=== PATIENT | female | born 1945 | race Caucasian/White ===

== ENCOUNTER 2019-03-27 11:18 | Emergency (ER) | payer MEDICARE, BC ==
[2019-03-27 11:46] LABS: #Basophils 0.1 thou/uL (0.0-0.2); #Eosinphils 0.2 thou/uL (0.0-0.7); #Lymphocytes 2.4 thou/uL (1.20-3.40); #Monocytes 0.7 thou/uL (0.11-0.59); #Neutrophils 5.1 thou/uL (1.40-6.50); %Basophils 0.9 % (0.0-1.0); %Eosinophils 1.9 % (0.0-10.0); %Lymphocytes 28.4 % (21.0-51.0); %Monocytes 7.8 % (0.0-10.0); %Neutrophils 61.1 % (42.0-75.0); Hemoglobin 12.8 g/dL (12.0-16.0); Mean Corpuscular HGB CONC 31.1 g/dL (32.0-36.0); Mean Corpuscular Hemoglobin 29.3 pg (27.0-31.0); Mean Corpuscular Volume 94.3 fL (78.0-98.0); Mean Platelet Volume 7.3 fL (7.4-10.4); Platelet Count 248 thou/uL (130-400); RBC Distribution Width 13.6 % (11.5-14.5); Red Blood Cell (RBC) Count 4.37 mill/uL (4.20-5.40); White Blood Cell (WBC) Count 8.3 thou/uL (4.8-10.8)
[2019-03-27 12:03] LABS: ALT (SGPT) 9 U/L (8-55); AST (SGOT) 9 U/L (5-34); Albumin 3.9 g/dL (3.4-4.8); Alkaline Phosphatase 93 U/L (40-150); Anion Gap 13 mmol/L (10-20); BUN (Urea Nitrogen) 25 mg/dL (9.8-20.1); Bilirubin, Total 0.4 mg/dL (0.2-1.2); Calc. Creatinine Clearance 0 mL/min (70-130); Carbon Dioxide 30 mmol/L (23-31); Chloride 101 mmol/L (98-107); Estimated GFR-MDRD 32; Globulin 3.3 g/dL (2.4-3.5); Glucose 139 mg/dL (83-110); Potassium 4.3 mmol/L (3.5-5.1); Protein, Total 7.2 g/dL (6.0-8.3); Sodium 140 mmol/L (136-145)
[2019-03-27 12:04] LABS: Alcohol Less than 10 mg/dL (Less than 10); Salicylate Less than 8.0 mg/dL (15.0-30.0)
[2019-03-27 15:11] LABS: ALT (SGPT) 10 U/L (8-55); AST (SGOT) 12 U/L (5-34); Albumin 3.7 g/dL (3.4-4.8); Alcohol Less than 10 mg/dL (Less than 10); Alkaline Phosphatase 86 U/L (40-150); Anion Gap 12 mmol/L (10-20); BUN (Urea Nitrogen) 25 mg/dL (9.8-20.1); Bilirubin, Total 0.3 mg/dL (0.2-1.2); Calc. Creatinine Clearance 0 mL/min (70-130); Calcium 9.6 mg/dL (7.8-10.44); Carbon Dioxide 30 mmol/L (23-31); Chloride 100 mmol/L (98-107); Estimated GFR-MDRD 32; Globulin 3.1 g/dL (2.4-3.5); Glucose 120 mg/dL (83-110); Potassium 4.5 mmol/L (3.5-5.1); Protein, Total 6.8 g/dL (6.0-8.3); Salicylate Less than 8.0 mg/dL (15.0-30.0); Sodium 137 mmol/L (136-145)
[2019-03-27 15:12] LABS: INR-International Normal Ratio 1.2; PTT 31.7 SEC (22.9-36.1); Prothrombin Time 14.8 SEC (12.0-14.7)
[2019-03-27 15:35] LABS: Base Excess-Venous 3.1 mmol/L (-2.0 to 3.0); Bicarbonate (HCO3v) 28.9 mmol/L (22.0-28.0); CO2 Tension (PvCO2) 47.5 mmHg (40.0-50.0); Calcium, Ionized 1.15 mmol/L (See Comments:); Chloride 102 mmol/L (98-107); Hemoglobin - Calc 13.4 g/dL (12.0-16.0); O2 Tension (PvO2) 31.3 mmHg (35.0-45.0); Potassium 4.4 mmol/L (3.5-5.1); Sodium 137 mmol/L (138-145); T. Carbon Dioxide 30.3 mmol/L (22.0-28.0); pH (Venous) 7.392 (7.320-7.430); vO2 Saturation-calc 58.8 % (60.0-85.0)
== END 2019-03-27 15:28 | disposition home or self-care (01) ==
LOC: BURERS 11:18
DX: T39.1X1A Poisoning by 4-Aminophenol derivatives, accidental (unintentional), initial encounter (principal); J45.909 Unspecified asthma, uncomplicated; I11.0 Hypertensive heart disease with heart failure; I50.9 Heart failure, unspecified; F32.9 Major depressive disorder, single episode, unspecified; Z79.899 Other long term (current) drug therapy; Z79.4 Long term (current) use of insulin
CPT/HCPCS: 80053; 80307; 82330; 82803; 83605; 85025; 85610; 85730; 99284

== ENCOUNTER 2019-07-02 14:03 | Emergency (ER) | payer MEDICARE, BC | END 2019-07-02 16:44 | disposition home or self-care (01) | LOC: BURERS 14:03 | DX: R04.0 Epistaxis (principal); I11.0 Hypertensive heart disease with heart failure; J45.909 Unspecified asthma, uncomplicated; I50.9 Heart failure, unspecified; E11.9 Type 2 diabetes mellitus without complications; F32.9 Major depressive disorder, single episode, unspecified; Z79.01 Long term (current) use of anticoagulants; Z79.51 Long term (current) use of inhaled steroids; Z79.899 Other long term (current) drug therapy; Z79.4 Long term (current) use of insulin | CPT/HCPCS: 99283 ==

== ENCOUNTER 2019-07-03 05:57 | Emergency (ER) | payer MEDICARE, BC | END 2019-07-03 06:40 | disposition home or self-care (01) | LOC: BURERS 05:57 | DX: R04.0 Epistaxis (principal); I11.0 Hypertensive heart disease with heart failure; I50.9 Heart failure, unspecified; E11.9 Type 2 diabetes mellitus without complications; F32.9 Major depressive disorder, single episode, unspecified; J45.909 Unspecified asthma, uncomplicated; Z79.01 Long term (current) use of anticoagulants; Z79.51 Long term (current) use of inhaled steroids; Z79.899 Other long term (current) drug therapy; Z79.4 Long term (current) use of insulin | CPT/HCPCS: 30903 ==

== ENCOUNTER 2020-10-12 20:46 | Emergency (ER) | payer MEDICARE, BC ==
[2020-10-12] MEDS ORDERED: Pantoprazole 40 MG VIAL ONE (21:39)
[2020-10-12] MEDS ORDERED: Morphine 4 MG/ML VIAL ONE (21:39)
[2020-10-12 21:45] LABS: #Basophils 0.1 thou/uL (0.0-0.2); #Eosinphils 0.1 thou/uL (0.0-0.7); #Lymphocytes 1.3 thou/uL (1.20-3.40); #Monocytes 1.1 thou/uL (0.11-0.59); #Neutrophils 12.2 thou/uL (1.40-6.50); %Basophils 0.9 % (0.0-1.0); %Eosinophils 0.8 % (0.0-10.0); %Lymphocytes 8.7 % (21.0-51.0); %Monocytes 7.5 % (0.0-10.0); %Neutrophils 82.2 % (42.0-75.0); Hemoglobin 12.1 g/dL (12.0-16.0); Mean Corpuscular HGB CONC 31.3 g/dL (32.0-36.0); Mean Corpuscular Hemoglobin 27.4 pg (27.0-31.0); Mean Corpuscular Volume 87.6 fL (78.0-98.0); Platelet Count 205 thou/uL (130-400); RBC Distribution Width 15.9 % (11.5-14.5); White Blood Cell (WBC) Count 14.8 thou/uL (4.8-10.8)
[2020-10-12 21:59] LABS: ALT (SGPT) 14 U/L (8-55); AST (SGOT) 8 U/L (5-34); Albumin 3.6 g/dL (3.4-4.8); Alkaline Phosphatase 110 U/L (40-110); Anion Gap 16 mmol/L (10-20); BUN (Urea Nitrogen) 22 mg/dL (9.8-20.1); Bilirubin, Total 0.4 mg/dL (0.2-1.2); Calc. Creatinine Clearance 0 mL/min (70-130); Calcium 9.1 mg/dL (7.8-10.44); Carbon Dioxide 25 mmol/L (23-31); Chloride 101 mmol/L (98-107); Estimated GFR-MDRD 32; Globulin 3.5 g/dL (2.4-3.5); Glucose 183 mg/dL (83-110); Lipase 33 U/L (8-78); Potassium 4.2 mmol/L (3.5-5.1); Protein, Total 7.1 g/dL (6.0-8.3); Sodium 138 mmol/L (136-145)
[2020-10-12 22:58] LABS: Bilirubin Negative (Negative); Blood, Urine Negative (Negative); Clarity Clear (Clear); Glucose, Urine (Dipstick) Negative (Negative); Ketone, Urine Negative (Negative); Leukocyte Trace (Negative); Nitrite Negative (Negative); Protein, Urine (Dipstick) 30 mg/dL (Neg-Trace); Urobilinogen 0.2 mg/dL (Less than 2)
[2020-10-12 23:00] LABS: Specific Gravity, Urine 1.034 (1.002-1.036)
[2020-10-12 23:03] LABS: Bacteria/HPF 1+ HPF (None Seen); RBC/HPF 0-3 HPF (0-3); Squamous Epithelial 0-3 HPF (0-3)
--- NOTE | 2020-10-13 08:13 | CT ---
PRELIMINARY REPORT/[facility]/EMERGENCY AFTER HOURS PROCEDURE: Addendum: There are 2 cystic structure in the calf and first the adjacent to the gallbladder with the larger on e measuring about 6.2 cm, probable represent choledochocyst. This may be further evaluated MRCP if c linically indicated. Addendum electronically signed by Lashell Parnell MD on October 12, 2020 10:43:28 PM [employer] EXAM: CT Abdomen and Pelvis Without Intravenous Contrast CLINICAL HISTORY: Patient with bilateral upper abdominal pain and bloating starting 3 days ago. She thought maybe due t o constipation (no BM for 6 days now) and gas. Pain migrated to RUQ and worse this morning. Worse wit h any deep breaths or laughing, some with moving around. Still no BM so took a laxative this AM witho ut result. Done w/o due to labs GFR 32 TECHNIQUE: Axial computed tomography images of the abdomen and pelvis without intravenous contrast. CONTRAST: None. COMPARISON: None provided. FINDINGS: LUNG BASES: No basilar airspace consolidation or pleural effusion. LIVER: There are 2 cystic structure adjacent to the gallbladder with the larger one measuring about 6.2 cm m ay represent a hepatic cyst. GALLBLADDER AND BILE DUCTS: The gallbladder is distended with 2 gallstones in the gallbladder neck region, cholecystitis cannot b e excluded. PANCREAS: Unremarkable. SPLEEN: Unremarkable. ADRENAL GLANDS: Unremarkable. KIDNEYS, URETERS, AND BLADDER: Both kidneys are small and atrophic. STOMACH AND BOWEL: No obstruction. No wall thickening. No CT evidence of colitis or acute diverticulitis. APPENDIX: No CT evidence for appendicitis. PERITONEUM: No free fluid. No free air. LYMPH NODES: No lymphadenopathy. REPRODUCTIVE: Unremarkable as visualized. VASCULATURE: No aortic aneurysm. ABDOMINAL WALL AND SOFT TISSUES: Unremarkable. BONES: No fracture or suspicious osseous abnormality. IMPRESSION: 1. The gallbladder is distended with 2 gallstones in the gallbladder neck region, cholecystitis canno t be excluded. 2. There are 2 cystic structure adjacent to the gallbladder with the larger one measuring about 6.2 c m may represent a hepatic cyst. 3. Both kidneys are small and atrophic. ELECTRONICALLY SIGNED BY: Lashell Parnell MD Oct 12, 2020 10:42:01 PM [employer] This report is intended for review by the ordering physician only, in accordance of law. If you recei ve this report in error, please call [facility] at [phone]. FINAL REPORT CT ABDOMEN AND PELVIS WITHOUT CONTRAST: DATE: 10/12/2020. FINDINGS: A NONCONTRAST ct WAS DONE FOR EVALUATION OF UPPER ABDOMINAL PAIN WHICH HAS MIGRATED TO THE RIGHT UPPE R QUADRANT. Comparison is made with the 2004 CT. The lung bases are clear. The major finding on this study is a markedly distended gallbladder measur ing at least 11 cm in length. Its wall is slightly thickened. At least 2 large gallstones are prese nt in it. The gallstones were present before, but the gallbladder was not distended. There are 2 la rge cystic structures adjacent to it that are seen on the prior CT. The larger is in the medial part of the right lobe of the liver measuring about 6.5 cm in size. It was 3.8 cm in 2004. A smaller cy stic area near it measures about 3 cm in size which is also slightly larger than before. The appeara nce is most suggestive of hepatic cysts, though other entities, such as one of these being a choledoc larissa cyst is theoretically possible. There is a small 1 cm cyst in the dome of the liver in the vicin ity of the left lobe and probably at least one more in the anterior right lobe. The overall hepatic size seems comparable to before. The spleen, pancreas, adrenal glands, and abdominal aorta, showed no acute findings. The kidneys are atrophic but show no mass. The aorta is calcified. Its maximal diameter in the mid aortic region i s 2.9 cm. There is no distention of bowel to suggest obstruction. A moderate amount of fecal material is prese nt in the colon. There is no inflammatory change around bowel. CT of the pelvis shows no free fluid, inflammatory change, or mass. Extensive degenerative changes a re present in the lumbar spine with central canal stenosis at several of the lower lumbar levels. IMPRESSION: 1. Markedly distended gallbladder with gallstones and wall thickening. Cholecystitis is suspected. An ultrasound would be helpful. There is no sign of intrahepatic ductal dilation. 2. Two large cystic areas adjacent to the gallbladder which were present in 2004 but are larger. I still feel the odds are highest that these are hepatic cysts. A few other tinier hepatic cysts are p robable in the liver. Again, ultrasound could be helpful. 3. Mild constipation. Report in agreement with preliminary reading by [facility]. POS: HOME
== END 2020-10-12 23:31 | disposition short-term general hospital (02) ==
LOC: BURERS 20:46
DX: K81.9 Cholecystitis, unspecified (principal); I11.0 Hypertensive heart disease with heart failure; I50.9 Heart failure, unspecified; E11.9 Type 2 diabetes mellitus without complications; E03.9 Hypothyroidism, unspecified; J45.909 Unspecified asthma, uncomplicated; F32.9 Major depressive disorder, single episode, unspecified
CPT/HCPCS: 74176; 80053; 81003; 81015; 83605; 83690; 84484; 85025; 87086; 93005; 96374; 96375; C9113; J2270

== ENCOUNTER 2020-12-18 14:43 | Emergency (ER) | payer MEDICARE, BC | END 2020-12-18 15:21 | disposition home or self-care (01) | LOC: BURERS 14:43 | DX: S61.511A Laceration without foreign body of right wrist, initial encounter (principal); R04.0 Epistaxis; E11.9 Type 2 diabetes mellitus without complications; E03.9 Hypothyroidism, unspecified; J44.9 Chronic obstructive pulmonary disease, unspecified; J45.909 Unspecified asthma, uncomplicated; I11.0 Hypertensive heart disease with heart failure; I50.9 Heart failure, unspecified; W18.30XA Fall on same level, unspecified, initial encounter | CPT/HCPCS: 30903 ==

== ENCOUNTER 2020-12-21 09:51 | Emergency (ER) | payer MEDICARE, BC | END 2020-12-21 10:09 | disposition home or self-care (01) | LOC: BURERS 09:51 | DX: Z48.01 Encounter for change or removal of surgical wound dressing (principal); I50.9 Heart failure, unspecified; I11.0 Hypertensive heart disease with heart failure; E11.9 Type 2 diabetes mellitus without complications; E03.9 Hypothyroidism, unspecified; J44.9 Chronic obstructive pulmonary disease, unspecified | CPT/HCPCS: 99282 ==

== ENCOUNTER 2021-04-20 09:44 | Emergency (ER) | payer MEDICARE, BC ==
[2021-04-20] MEDS ORDERED: Ketorolac Tromethamine 30 MG/ML VIAL ONE (10:14)
== END 2021-04-20 10:59 | disposition home or self-care (01) ==
LOC: BURERS 09:44
DX: S33.8XXA Sprain of other parts of lumbar spine and pelvis, initial encounter (principal); M54.17 Radiculopathy, lumbosacral region; E11.9 Type 2 diabetes mellitus without complications; E03.9 Hypothyroidism, unspecified; I10 Essential (primary) hypertension; J44.9 Chronic obstructive pulmonary disease, unspecified; Z79.899 Other long term (current) drug therapy; Z79.84 Long term (current) use of oral hypoglycemic drugs; Z79.01 Long term (current) use of anticoagulants; W19.XXXA Unspecified fall, initial encounter
CPT/HCPCS: 72100; 72220; 96372; J1885

== ENCOUNTER 2023-03-01 19:20 | Inpatient (IN) | payer MEDICARE, BC ==
[2023-03-01] MEDS ORDERED: traMADol HCl 50 MG TAB PO PRN (20:42)
[2023-03-01] MEDS ORDERED: Gabapentin 300 MG CAP PO PRN (20:44)
[2023-03-01] MEDS ORDERED: Cyclobenzaprine 10 MG TAB PO PRN (20:50)
[2023-03-01 20:52] VITALS: BMI 44.1
[2023-03-01] MEDS ORDERED: Bisacodyl 10 MG SUPP PR PRN (21:00)
[2023-03-01] MEDS ORDERED: HYDROcodone/Acetaminophen 5/325 mg Tablet PO PRN ×2 (21:00)
[2023-03-01] MEDS ORDERED: Loperamide HCl 2 MG CAP PO PRN ×2 (21:00)
[2023-03-01] MEDS ORDERED: Acetaminophen 650 MG Suppository PR PRN (21:00)
[2023-03-01] MEDS ORDERED: Apixaban 5 MG TAB PO SCH (21:00)
[2023-03-01] MEDS ORDERED: Metoprolol Tartrate 25 MG TAB PO SCH (21:00)
[2023-03-01] MEDS ORDERED: Lantus 1000 UNITS/10 ML VIAL SC SCH (21:00)
[2023-03-01] MEDS ORDERED: Lisinopril 20 MG TAB PO SCH (21:00)
[2023-03-01] MEDS ORDERED: Atorvastatin Calcium 40 MG TAB PO SCH (21:00)
[2023-03-01] MEDS ORDERED: Gabapentin 300 MG CAP PO SCH (21:00)
[2023-03-01] MEDS ORDERED: Mometasone/Formoterol 200/5 60 PUFF INH SCH (21:00)
[2023-03-01] MEDS ORDERED: Ondansetron PF 4 MG/2 ML Vial SLOW IVP PRN (21:00)
[2023-03-01] MEDS ORDERED: Guaifenesin DM 100-10/5 ML UDCUP PO PRN (21:00)
[2023-03-01] MEDS ORDERED: Ipratropium/Albuterol 3 ML NEB NEB SCH (21:00)
[2023-03-01] MEDS ORDERED: Ondansetron ODT 4 MG TAB SL PRN (21:00)
[2023-03-01] MEDS ORDERED: Senokot S 8.6-50 MG TAB PO SCH (21:00)
[2023-03-01] MEDS ORDERED: Senokot S 8.6-50 MG TAB PO PRN (21:00)
[2023-03-01] MEDS ORDERED: Zolpidem Tartrate 5 MG TAB PO PRN (21:00)
[2023-03-01] MEDS ORDERED: Bisacodyl 5 MG TAB PO PRN (21:00)
[2023-03-01] MEDS ORDERED: Acetaminophen 325 MG TAB PO PRN (21:00)
[2023-03-01] MEDS: Melatonin 3 MG TAB PO SCH ×2 (21:35)
[2023-03-01] MEDS: Famotidine 20 MG TAB PO SCH (21:37)
[2023-03-01] MEDS: VERAPAMIL 360 MG PO SCH (21:54)
[2023-03-01] MEDS: Lantus 1000 UNITS/10 ML VIAL SC SCH (21:56)
[2023-03-01] MEDS: Acetaminophen 500 MG TAB PO SCH (23:46)
[2023-03-01] MEDS: traMADol HCl 50 MG TAB PO SCH (23:47)
[2023-03-02] MEDS: Acetaminophen 500 MG TAB PO SCH ×3 (05:53→17:13)
[2023-03-02] MEDS: traMADol HCl 50 MG TAB PO SCH ×3 (05:54→17:14)
[2023-03-02] MEDS ORDERED: Furosemide 20 MG TAB PO SCH (06:00)
[2023-03-02] MEDS ORDERED: Levothyroxine Sodium 100 MCG TAB PO SCH (06:00)
[2023-03-02] MEDS ORDERED: Cyclobenzaprine 10 MG TAB PO PRN (07:05)
[2023-03-02] MEDS ORDERED: traMADol HCl 50 MG TAB PO PRN (07:05)
[2023-03-02] MEDS ORDERED: Dextrose 5% in Water 1,000 ML IV PRN (07:08)
[2023-03-02] MEDS ORDERED: HumaLOG 300 UNITS/3 ML VIAL SC PRN (07:08)
[2023-03-02] MEDS ORDERED: Dextrose 50% Abboject 50 ML SYRINGE SLOW IVP PRN (07:08)
[2023-03-02] MEDS ORDERED: Glimepiride 2 MG TAB PO SCH (07:30)
[2023-03-02] MEDS ORDERED: metFORMIN 500 MG TAB PO SCH (08:00)
[2023-03-02] MEDS: Floranex 1 GM Packet PO SCH (08:24)
[2023-03-02] MEDS: DULoxetine 30 MG CAP PO SCH (08:25)
[2023-03-02] MEDS: Glimepiride 2 MG TAB PO SCH (08:26)
[2023-03-02] MEDS: Amiodarone 200 MG TAB PO SCH (08:27)
[2023-03-02] MEDS: Apixaban 5 MG TAB PO SCH ×2 (08:27→21:32)
[2023-03-02] MEDS: Lisinopril 20 MG TAB PO SCH ×2 (08:28→21:35)
[2023-03-02] MEDS: Saccharomyces boulardii 250 MG CAP PO SCH (08:29)
[2023-03-02] MEDS: Senokot S 8.6-50 MG TAB PO SCH ×2 (08:29→22:00)
[2023-03-02] MEDS: Gabapentin 100 MG CAP PO SCH ×3 (08:30→21:35)
[2023-03-02] MEDS: metFORMIN 500 MG TAB PO SCH ×2 (08:30→17:14)
[2023-03-02] MEDS: Furosemide 20 MG TAB PO SCH (08:31)
[2023-03-02] MEDS: Metoprolol Tartrate 25 MG TAB PO SCH ×2 (08:32→21:34)
[2023-03-02] MEDS: Bupropion 150 MG XL TAB PO SCH (08:32)
[2023-03-02] MEDS: Famotidine 20 MG TAB PO SCH ×2 (08:33→21:35)
[2023-03-02] MEDS: Ipratropium/Albuterol 3 ML NEB NEB SCH ×2 (08:35→21:32)
[2023-03-02] MEDS ORDERED: LEVOTHYROXINE SODIUM 175 MCG PO SCH (09:00)
[2023-03-02] MEDS ORDERED: Non-Formulary Item 1 EACH (Lisinopril [Lisinopril] 40 MG Tablet) PO SCH (09:00)
[2023-03-02] MEDS ORDERED: Bupropion 150 MG XL TAB PO SCH (09:00)
[2023-03-02] MEDS ORDERED: GLIMEPIRIDE 4 MG PO SCH (09:00)
[2023-03-02] MEDS ORDERED: Non-Formulary Item 1 EACH (Fluticasone Propionate [Flovent Diskus] 50 MCG Blst.W.Dev) IH SCH (09:00)
[2023-03-02] MEDS ORDERED: DULoxetine 30 MG CAP PO SCH (09:00)
[2023-03-02] MEDS ORDERED: Mometasone 100 MCG/PUFF (1 INHALER) INH SCH (09:00)
[2023-03-02] MEDS ORDERED: Non-Formulary Item 1 EACH (Lactobacillus Rhamnosus Gg [Culturelle] 1 CAPSULE Capsule) PO SCH (09:00)
[2023-03-02] MEDS ORDERED: Non-Formulary Item 1 EACH (Duloxetine [Cymbalta] 60 MG Cap) PO SCH (09:00)
[2023-03-02] MEDS ORDERED: DOCUSATE SODIUM 250 MG PO SCH ×2 (09:00)
[2023-03-02] MEDS ORDERED: Amiodarone 200 MG TAB PO SCH (09:00)
[2023-03-02] MEDS ORDERED: Non-Formulary Item 1 EACH (Bupropion Hcl [Bupropion Xl] 300 MG Tab.Er.24h) PO SCH (09:00)
[2023-03-02] MEDS ORDERED: Non-Formulary Item 1 EACH (Budesonide/Formoterol Fumarate [Budesonide-Formoterol 160-4.5] INH SCH (09:00)
[2023-03-02] MEDS: Docusate Sodium 100 MG/10 ML UDCUP PO SCH (09:05)
[2023-03-02] MEDS: FLUTICASONE PROPIONATE PO SCH (10:06)
[2023-03-02] MEDS: Mometasone/Formoterol 200/5 60 PUFF INH SCH (17:15)
[2023-03-02] MEDS ORDERED: Non-Formulary Item 1 EACH (Atorvastatin Calcium [Atorvastatin Calcium] 80 MG Tablet) PO SCH (21:00)
[2023-03-02] MEDS ORDERED: Lantus 1000 UNITS/10 ML VIAL SC SCH (21:00)
[2023-03-02] MEDS ORDERED: Non-Formulary Item 1 EACH (Melatonin [Melatonin] 5 MG Capsule) PO SCH (21:00)
[2023-03-02] MEDS ORDERED: VERAPAMIL 360 MG DT SCH (21:00)
[2023-03-02] MEDS ORDERED: VERAPAMIL 360 MG PO SCH (21:00)
[2023-03-02] MEDS: Melatonin 3 MG TAB PO SCH (21:32)
[2023-03-02] MEDS: Atorvastatin Calcium 40 MG TAB PO SCH (21:34)
[2023-03-02] MEDS: VERAPAMIL 360 MG PO SCH (21:36)
[2023-03-02] MEDS: Gabapentin 300 MG CAP PO SCH (22:22)
[2023-03-02] MEDS: Lantus 1000 UNITS/10 ML VIAL SC SCH (22:23)
[2023-03-03] MEDS: Acetaminophen 500 MG TAB PO SCH ×5 (00:07→23:21)
[2023-03-03] MEDS: traMADol HCl 50 MG TAB PO SCH ×5 (00:08→23:22)
[2023-03-03] MEDS: Levothyroxine Sodium 50 MCG TAB PO SCH (06:18)
[2023-03-03] MEDS: Mometasone/Formoterol 200/5 60 PUFF INH SCH ×2 (06:20→22:33)
[2023-03-03] MEDS: DULoxetine 30 MG CAP PO SCH (09:15)
[2023-03-03] MEDS: Glimepiride 2 MG TAB PO SCH (09:16)
[2023-03-03] MEDS: Senokot S 8.6-50 MG TAB PO SCH ×2 (09:17→22:29)
[2023-03-03] MEDS: Lisinopril 20 MG TAB PO SCH ×2 (09:17→22:29)
[2023-03-03] MEDS: Bupropion 150 MG XL TAB PO SCH (09:18)
[2023-03-03] MEDS: Gabapentin 100 MG CAP PO SCH ×3 (09:18→22:30)
[2023-03-03] MEDS: Floranex 1 GM Packet PO SCH (09:18)
[2023-03-03] MEDS: Famotidine 20 MG TAB PO SCH ×2 (09:18→22:29)
[2023-03-03] MEDS: Furosemide 20 MG TAB PO SCH (09:19)
[2023-03-03] MEDS: Saccharomyces boulardii 250 MG CAP PO SCH (09:19)
[2023-03-03] MEDS: Amiodarone 200 MG TAB PO SCH (09:20)
[2023-03-03] MEDS: Apixaban 5 MG TAB PO SCH ×2 (09:20→22:28)
[2023-03-03] MEDS: Metoprolol Tartrate 25 MG TAB PO SCH ×2 (09:20→22:30)
[2023-03-03] MEDS: metFORMIN 500 MG TAB PO SCH ×2 (09:21→17:48)
[2023-03-03] MEDS: Docusate Sodium 100 MG/10 ML UDCUP PO SCH (09:28)
[2023-03-03] MEDS: Ipratropium/Albuterol 3 ML NEB NEB SCH ×2 (09:30→22:32)
[2023-03-03] MEDS: HumaLOG 300 UNITS/3 ML VIAL SC PRN (12:42)
[2023-03-03] MEDS: FLUTICASONE PROPIONATE PO SCH (12:49)
[2023-03-03] MEDS ORDERED: VERAPAMIL 360 MG PO SCH (21:00)
[2023-03-03] MEDS: Lantus 1000 UNITS/10 ML VIAL SC SCH (22:26)
[2023-03-03] MEDS: Atorvastatin Calcium 40 MG TAB PO SCH (22:28)
[2023-03-03] MEDS: Melatonin 3 MG TAB PO SCH (22:30)
[2023-03-03] MEDS: Gabapentin 300 MG CAP PO SCH (22:31)
[2023-03-03] MEDS: VERAPAMIL 360 MG PO SCH (22:43)
[2023-03-04] MEDS: Acetaminophen 500 MG TAB PO SCH ×3 (06:11→18:36)
[2023-03-04] MEDS: Levothyroxine Sodium 50 MCG TAB PO SCH (06:11)
[2023-03-04] MEDS: traMADol HCl 50 MG TAB PO SCH ×3 (06:12→18:38)
[2023-03-04] MEDS: Lisinopril 20 MG TAB PO SCH ×2 (09:48→21:30)
[2023-03-04] MEDS: DULoxetine 30 MG CAP PO SCH (09:48)
[2023-03-04] MEDS: Bupropion 150 MG XL TAB PO SCH (09:48)
[2023-03-04] MEDS: Glimepiride 2 MG TAB PO SCH (09:48)
[2023-03-04] MEDS: Famotidine 20 MG TAB PO SCH ×2 (09:49→21:30)
[2023-03-04] MEDS: metFORMIN 500 MG TAB PO SCH ×2 (09:50→18:36)
[2023-03-04] MEDS: Metoprolol Tartrate 25 MG TAB PO SCH ×2 (09:50→21:32)
[2023-03-04] MEDS: Saccharomyces boulardii 250 MG CAP PO SCH (09:51)
[2023-03-04] MEDS: Gabapentin 100 MG CAP PO SCH ×3 (09:52→21:42)
[2023-03-04] MEDS: Furosemide 20 MG TAB PO SCH (09:52)
[2023-03-04] MEDS: Apixaban 5 MG TAB PO SCH ×2 (09:53→21:30)
[2023-03-04] MEDS: Amiodarone 200 MG TAB PO SCH (09:53)
[2023-03-04] MEDS: Floranex 1 GM Packet PO SCH (09:53)
[2023-03-04] MEDS: Mometasone/Formoterol 200/5 60 PUFF INH SCH ×2 (09:54→21:33)
[2023-03-04] MEDS: Ipratropium/Albuterol 3 ML NEB NEB SCH ×2 (09:58→21:32)
[2023-03-04] MEDS: Senokot S 8.6-50 MG TAB PO SCH ×2 (09:59→21:30)
[2023-03-04] MEDS: Docusate Sodium 100 MG/10 ML UDCUP PO SCH (09:59)
[2023-03-04] MEDS: VERAPAMIL 360 MG PO SCH (21:29)
[2023-03-04] MEDS: Atorvastatin Calcium 40 MG TAB PO SCH (21:30)
[2023-03-04] MEDS: Gabapentin 300 MG CAP PO SCH (21:31)
[2023-03-04] MEDS: Melatonin 3 MG TAB PO SCH (21:31)
[2023-03-04] MEDS: Lantus 1000 UNITS/10 ML VIAL SC SCH (21:36)
[2023-03-05] MEDS: traMADol HCl 50 MG TAB PO SCH ×4 (00:07→17:50)
[2023-03-05] MEDS: Acetaminophen 500 MG TAB PO SCH ×4 (00:07→17:49)
[2023-03-05] MEDS: Levothyroxine Sodium 50 MCG TAB PO SCH (06:05)
[2023-03-05] MEDS: Mometasone/Formoterol 200/5 60 PUFF INH SCH ×2 (09:24→22:00)
[2023-03-05] MEDS: Ipratropium/Albuterol 3 ML NEB NEB SCH ×2 (09:25→21:59)
[2023-03-05] MEDS: Floranex 1 GM Packet PO SCH (09:26)
[2023-03-05] MEDS: Lisinopril 20 MG TAB PO SCH ×2 (09:28→21:57)
[2023-03-05] MEDS: Famotidine 20 MG TAB PO SCH ×2 (09:29→21:58)
[2023-03-05] MEDS: Gabapentin 100 MG CAP PO SCH ×3 (09:29→21:58)
[2023-03-05] MEDS: Saccharomyces boulardii 250 MG CAP PO SCH (09:29)
[2023-03-05] MEDS: Glimepiride 2 MG TAB PO SCH (09:29)
[2023-03-05] MEDS: DULoxetine 30 MG CAP PO SCH (09:29)
[2023-03-05] MEDS: Bupropion 150 MG XL TAB PO SCH (09:30)
[2023-03-05] MEDS: Metoprolol Tartrate 25 MG TAB PO SCH ×2 (09:31→21:57)
[2023-03-05] MEDS: Amiodarone 200 MG TAB PO SCH (09:31)
[2023-03-05] MEDS: Apixaban 5 MG TAB PO SCH ×2 (09:31→21:57)
[2023-03-05] MEDS: Furosemide 20 MG TAB PO SCH (09:31)
[2023-03-05] MEDS: metFORMIN 500 MG TAB PO SCH ×2 (09:32→16:19)
[2023-03-05] MEDS: Senokot S 8.6-50 MG TAB PO SCH ×2 (09:39→21:56)
[2023-03-05] MEDS: Docusate Sodium 100 MG/10 ML UDCUP PO SCH (09:39)
[2023-03-05] MEDS: HumaLOG 300 UNITS/3 ML VIAL SC PRN (12:34)
[2023-03-05] MEDS: Atorvastatin Calcium 40 MG TAB PO SCH (21:57)
[2023-03-05] MEDS: Melatonin 3 MG TAB PO SCH (21:57)
[2023-03-05] MEDS: Gabapentin 300 MG CAP PO SCH (21:58)
[2023-03-05] MEDS: VERAPAMIL 360 MG PO SCH (21:59)
[2023-03-05] MEDS: Lantus 1000 UNITS/10 ML VIAL SC SCH (21:59)
[2023-03-06] MEDS: Acetaminophen 500 MG TAB PO SCH ×3 (00:07→13:10)
[2023-03-06] MEDS: traMADol HCl 50 MG TAB PO SCH ×3 (00:08→13:11)
[2023-03-06] MEDS: Levothyroxine Sodium 50 MCG TAB PO SCH (06:08)
[2023-03-06] MEDS: Senokot S 8.6-50 MG TAB PO SCH ×2 (09:05→21:29)
[2023-03-06] MEDS: Lisinopril 20 MG TAB PO SCH ×2 (09:06→21:29)
[2023-03-06] MEDS: DULoxetine 30 MG CAP PO SCH (09:06)
[2023-03-06] MEDS: Glimepiride 2 MG TAB PO SCH (09:07)
[2023-03-06] MEDS: Mometasone/Formoterol 200/5 60 PUFF INH SCH ×2 (09:07→21:33)
[2023-03-06] MEDS: Floranex 1 GM Packet PO SCH (09:11)
[2023-03-06] MEDS: Ipratropium/Albuterol 3 ML NEB NEB SCH ×2 (09:11→21:32)
[2023-03-06] MEDS: Bupropion 150 MG XL TAB PO SCH (09:12)
[2023-03-06] MEDS: Famotidine 20 MG TAB PO SCH ×2 (09:12→21:30)
[2023-03-06] MEDS: Gabapentin 100 MG CAP PO SCH ×3 (09:12→21:31)
[2023-03-06] MEDS: Furosemide 20 MG TAB PO SCH (09:13)
[2023-03-06] MEDS: Metoprolol Tartrate 25 MG TAB PO SCH ×2 (09:13→21:30)
[2023-03-06] MEDS: Saccharomyces boulardii 250 MG CAP PO SCH (09:13)
[2023-03-06] MEDS: Apixaban 5 MG TAB PO SCH ×2 (09:14→21:29)
[2023-03-06] MEDS: Amiodarone 200 MG TAB PO SCH (09:14)
[2023-03-06] MEDS: metFORMIN 500 MG TAB PO SCH ×2 (09:18→16:29)
[2023-03-06] MEDS: Docusate Sodium 100 MG/10 ML UDCUP PO SCH (09:30)
[2023-03-06] MEDS ORDERED: GUAIFENESIN SF SOLN 200 MG/10 ML UDCUP PO PRN (17:52)
[2023-03-06] MEDS: Lantus 1000 UNITS/10 ML VIAL SC SCH (21:28)
[2023-03-06] MEDS: Melatonin 3 MG TAB PO SCH (21:29)
[2023-03-06] MEDS: Gabapentin 300 MG CAP PO SCH (21:30)
[2023-03-06] MEDS: Atorvastatin Calcium 40 MG TAB PO SCH (21:30)
[2023-03-06] MEDS: VERAPAMIL 360 MG PO SCH (21:32)
[2023-03-07] MEDS: Levothyroxine Sodium 50 MCG TAB PO SCH (05:53)
[2023-03-07] MEDS: Glimepiride 2 MG TAB PO SCH (08:25)
[2023-03-07] MEDS: Docusate Sodium 100 MG/10 ML UDCUP PO SCH (10:20)
[2023-03-07] MEDS: Mometasone/Formoterol 200/5 60 PUFF INH SCH ×2 (10:21→23:07)
[2023-03-07] MEDS: Gabapentin 100 MG CAP PO SCH ×3 (10:22→23:05)
[2023-03-07] MEDS: Bupropion 150 MG XL TAB PO SCH (10:23)
[2023-03-07] MEDS: Metoprolol Tartrate 25 MG TAB PO SCH ×2 (10:24→23:04)
[2023-03-07] MEDS: DULoxetine 30 MG CAP PO SCH (10:24)
[2023-03-07] MEDS: Furosemide 20 MG TAB PO SCH (10:24)
[2023-03-07] MEDS: Floranex 1 GM Packet PO SCH (10:25)
[2023-03-07] MEDS: Famotidine 20 MG TAB PO SCH ×2 (10:25→23:05)
[2023-03-07] MEDS: Saccharomyces boulardii 250 MG CAP PO SCH (10:25)
[2023-03-07] MEDS: Senokot S 8.6-50 MG TAB PO SCH ×2 (10:25→23:03)
[2023-03-07] MEDS: Lisinopril 20 MG TAB PO SCH ×2 (10:26→23:03)
[2023-03-07] MEDS: Apixaban 5 MG TAB PO SCH ×2 (10:26→23:03)
[2023-03-07] MEDS: Amiodarone 200 MG TAB PO SCH (10:26)
[2023-03-07] MEDS: Ipratropium/Albuterol 3 ML NEB NEB SCH ×2 (10:28→23:06)
[2023-03-07] MEDS: metFORMIN 500 MG TAB PO SCH (17:07)
[2023-03-07] MEDS: VERAPAMIL 360 MG PO SCH (23:03)
[2023-03-07] MEDS: Atorvastatin Calcium 40 MG TAB PO SCH (23:04)
[2023-03-07] MEDS: Melatonin 3 MG TAB PO SCH (23:05)
[2023-03-07] MEDS: Gabapentin 300 MG CAP PO SCH (23:06)
[2023-03-07] MEDS: Calcium Carbonate 500 MG ChewTAB PO PRN (23:19)
[2023-03-07] MEDS: Lantus 1000 UNITS/10 ML VIAL SC SCH (23:20)
[2023-03-08] MEDS: Levothyroxine Sodium 50 MCG TAB PO SCH (05:26)
[2023-03-08] MEDS: Mometasone/Formoterol 200/5 60 PUFF INH SCH ×2 (08:57→22:46)
[2023-03-08] MEDS: Apixaban 5 MG TAB PO SCH ×2 (08:58→22:47)
[2023-03-08] MEDS: Saccharomyces boulardii 250 MG CAP PO SCH (08:58)
[2023-03-08] MEDS: Lisinopril 20 MG TAB PO SCH ×2 (08:59→22:42)
[2023-03-08] MEDS: Famotidine 20 MG TAB PO SCH ×2 (08:59→22:39)
[2023-03-08] MEDS: Senokot S 8.6-50 MG TAB PO SCH ×2 (08:59→22:40)
[2023-03-08] MEDS: Metoprolol Tartrate 25 MG TAB PO SCH ×2 (08:59→22:43)
[2023-03-08] MEDS: Gabapentin 100 MG CAP PO SCH ×3 (09:00→22:43)
[2023-03-08] MEDS: Floranex 1 GM Packet PO SCH (09:01)
[2023-03-08] MEDS: Glimepiride 2 MG TAB PO SCH (09:01)
[2023-03-08] MEDS: Amiodarone 200 MG TAB PO SCH (09:01)
[2023-03-08] MEDS: Ipratropium/Albuterol 3 ML NEB NEB SCH ×2 (09:02→22:45)
[2023-03-08] MEDS: Docusate Sodium 100 MG/10 ML UDCUP PO SCH (09:02)
[2023-03-08] MEDS: Bupropion 150 MG XL TAB PO SCH (09:02)
[2023-03-08] MEDS: DULoxetine 30 MG CAP PO SCH (09:02)
[2023-03-08] MEDS: Furosemide 20 MG TAB PO SCH (09:03)
[2023-03-08] MEDS: metFORMIN 500 MG TAB PO SCH (16:04)
[2023-03-08] MEDS: VERAPAMIL 360 MG PO SCH (22:39)
[2023-03-08] MEDS: Atorvastatin Calcium 40 MG TAB PO SCH (22:39)
[2023-03-08] MEDS: Melatonin 3 MG TAB PO SCH (22:40)
[2023-03-08] MEDS: Lantus 1000 UNITS/10 ML VIAL SC SCH (22:41)
[2023-03-08] MEDS: Gabapentin 300 MG CAP PO SCH (22:44)
[2023-03-09] MEDS: Levothyroxine Sodium 50 MCG TAB PO SCH (05:35)
[2023-03-09] MEDS: Mometasone/Formoterol 200/5 60 PUFF INH SCH ×2 (10:10→21:16)
[2023-03-09] MEDS: Docusate Sodium 100 MG/10 ML UDCUP PO SCH (10:13)
[2023-03-09] MEDS: Ipratropium/Albuterol 3 ML NEB NEB SCH ×2 (10:16→21:15)
[2023-03-09] MEDS: Bupropion 150 MG XL TAB PO SCH (10:19)
[2023-03-09] MEDS: DULoxetine 30 MG CAP PO SCH (10:19)
[2023-03-09] MEDS: Glimepiride 2 MG TAB PO SCH (10:19)
[2023-03-09] MEDS: Lisinopril 20 MG TAB PO SCH ×2 (10:20→21:17)
[2023-03-09] MEDS: Gabapentin 100 MG CAP PO SCH ×3 (10:21→21:18)
[2023-03-09] MEDS: Furosemide 20 MG TAB PO SCH (10:22)
[2023-03-09] MEDS: Amiodarone 200 MG TAB PO SCH (10:22)
[2023-03-09] MEDS: Famotidine 20 MG TAB PO SCH ×2 (10:22→21:25)
[2023-03-09] MEDS: Metoprolol Tartrate 25 MG TAB PO SCH ×2 (10:22→21:25)
[2023-03-09] MEDS: Apixaban 5 MG TAB PO SCH ×2 (10:22→21:19)
[2023-03-09] MEDS: Saccharomyces boulardii 250 MG CAP PO SCH (10:22)
[2023-03-09] MEDS: Floranex 1 GM Packet PO SCH (10:24)
[2023-03-09] MEDS: Senokot S 8.6-50 MG TAB PO SCH ×2 (10:29→21:15)
[2023-03-09] MEDS: HumaLOG 300 UNITS/3 ML VIAL SC PRN (13:17)
[2023-03-09] MEDS: metFORMIN 500 MG TAB PO SCH (16:33)
[2023-03-09] MEDS: VERAPAMIL 360 MG PO SCH (21:15)
[2023-03-09] MEDS: Melatonin 3 MG TAB PO SCH (21:17)
[2023-03-09] MEDS: Gabapentin 300 MG CAP PO SCH (21:18)
[2023-03-09] MEDS: Atorvastatin Calcium 40 MG TAB PO SCH (21:19)
[2023-03-09] MEDS: Lantus 1000 UNITS/10 ML VIAL SC SCH (21:20)
[2023-03-10] MEDS: Levothyroxine Sodium 50 MCG TAB PO SCH (05:12)
[2023-03-10] MEDS: Calcium Carbonate 500 MG ChewTAB PO PRN (05:35)
[2023-03-10] MEDS: Bupropion 150 MG XL TAB PO SCH (12:31)
[2023-03-10] MEDS: Gabapentin 100 MG CAP PO SCH ×3 (12:32→21:55)
[2023-03-10] MEDS: Metoprolol Tartrate 25 MG TAB PO SCH ×2 (12:32→21:31)
[2023-03-10] MEDS: Amiodarone 200 MG TAB PO SCH (12:33)
[2023-03-10] MEDS: Apixaban 5 MG TAB PO SCH ×2 (12:34→21:29)
[2023-03-10] MEDS: Saccharomyces boulardii 250 MG CAP PO SCH (12:34)
[2023-03-10] MEDS: Furosemide 20 MG TAB PO SCH (12:34)
[2023-03-10] MEDS: Lisinopril 20 MG TAB PO SCH ×2 (12:34→21:29)
[2023-03-10] MEDS: Famotidine 20 MG TAB PO SCH ×2 (12:34→21:30)
[2023-03-10] MEDS: DULoxetine 30 MG CAP PO SCH (12:35)
[2023-03-10] MEDS: Glimepiride 2 MG TAB PO SCH (12:35)
[2023-03-10] MEDS: Ipratropium/Albuterol 3 ML NEB NEB SCH (12:36)
[2023-03-10] MEDS: Floranex 1 GM Packet PO SCH (12:36)
[2023-03-10] MEDS: Mometasone/Formoterol 200/5 60 PUFF INH SCH ×2 (12:38→21:32)
[2023-03-10] MEDS: Docusate Sodium 100 MG/10 ML UDCUP PO SCH (12:40)
[2023-03-10] MEDS: Senokot S 8.6-50 MG TAB PO SCH ×2 (12:40→21:34)
[2023-03-10] MEDS: metFORMIN 500 MG TAB PO SCH (16:17)
[2023-03-10] MEDS: VERAPAMIL 360 MG PO SCH (21:29)
[2023-03-10] MEDS: Atorvastatin Calcium 40 MG TAB PO SCH (21:29)
[2023-03-10] MEDS: Lantus 1000 UNITS/10 ML VIAL SC SCH (21:30)
[2023-03-10] MEDS: Melatonin 3 MG TAB PO SCH (21:30)
[2023-03-10] MEDS: Gabapentin 300 MG CAP PO SCH (21:30)
[2023-03-10] MEDS: Ipratropium/Albuterol Sulfate 4 GM AER IH SCH (21:44)
[2023-03-11] MEDS: Levothyroxine Sodium 50 MCG TAB PO SCH (05:45)
[2023-03-11] MEDS: Glimepiride 2 MG TAB PO SCH (09:20)
[2023-03-11] MEDS: Lisinopril 20 MG TAB PO SCH ×2 (09:21→21:04)
[2023-03-11] MEDS: Bupropion 150 MG XL TAB PO SCH (09:21)
[2023-03-11] MEDS: Amiodarone 200 MG TAB PO SCH (09:21)
[2023-03-11] MEDS: Senokot S 8.6-50 MG TAB PO SCH ×2 (09:22→21:04)
[2023-03-11] MEDS: Apixaban 5 MG TAB PO SCH ×2 (09:22→21:05)
[2023-03-11] MEDS: Furosemide 20 MG TAB PO SCH (09:22)
[2023-03-11] MEDS: DULoxetine 30 MG CAP PO SCH (09:23)
[2023-03-11] MEDS: Saccharomyces boulardii 250 MG CAP PO SCH (09:23)
[2023-03-11] MEDS: Gabapentin 100 MG CAP PO SCH ×3 (09:23→21:06)
[2023-03-11] MEDS: Metoprolol Tartrate 25 MG TAB PO SCH ×2 (09:23→21:05)
[2023-03-11] MEDS: Floranex 1 GM Packet PO SCH (09:24)
[2023-03-11] MEDS: Famotidine 20 MG TAB PO SCH ×2 (09:24→21:06)
[2023-03-11] MEDS: Ipratropium/Albuterol Sulfate 4 GM AER IH SCH ×2 (09:25→22:00)
[2023-03-11] MEDS: Docusate Sodium 100 MG/10 ML UDCUP PO SCH (09:25)
[2023-03-11] MEDS: Mometasone/Formoterol 200/5 60 PUFF INH SCH ×2 (09:25→22:00)
[2023-03-11] MEDS: Cepastat Lozenges 1 LOZ PO PRN (16:40)
[2023-03-11] MEDS: metFORMIN 500 MG TAB PO SCH (16:41)
[2023-03-11] MEDS: Gabapentin 300 MG CAP PO SCH (21:05)
[2023-03-11] MEDS: Atorvastatin Calcium 40 MG TAB PO SCH (21:05)
[2023-03-11] MEDS: Melatonin 3 MG TAB PO SCH (21:06)
[2023-03-11] MEDS: Lantus 1000 UNITS/10 ML VIAL SC SCH (21:08)
[2023-03-11 21:54] LABS: Glucose 90 mg/dL (83-110)
[2023-03-11] MEDS: VERAPAMIL 360 MG PO SCH (22:00)
[2023-03-12] MEDS: Levothyroxine Sodium 50 MCG TAB PO SCH (05:13)
[2023-03-12] MEDS: Cepastat Lozenges 1 LOZ PO PRN ×2 (05:13→09:51)
[2023-03-12] MEDS: Docusate Sodium 100 MG/10 ML UDCUP PO SCH (09:30)
[2023-03-12] MEDS: Mometasone/Formoterol 200/5 60 PUFF INH SCH ×2 (09:39→21:15)
[2023-03-12] MEDS: Furosemide 20 MG TAB PO SCH (09:40)
[2023-03-12] MEDS: Glimepiride 2 MG TAB PO SCH (09:40)
[2023-03-12] MEDS: DULoxetine 30 MG CAP PO SCH (09:40)
[2023-03-12] MEDS: Lisinopril 20 MG TAB PO SCH ×2 (09:41→21:04)
[2023-03-12] MEDS: Saccharomyces boulardii 250 MG CAP PO SCH (09:41)
[2023-03-12] MEDS: Apixaban 5 MG TAB PO SCH ×2 (09:41→21:05)
[2023-03-12] MEDS: Bupropion 150 MG XL TAB PO SCH (09:41)
[2023-03-12] MEDS: Senokot S 8.6-50 MG TAB PO SCH ×2 (09:42→21:19)
[2023-03-12] MEDS: Gabapentin 100 MG CAP PO SCH ×3 (09:42→21:07)
[2023-03-12] MEDS: Metoprolol Tartrate 25 MG TAB PO SCH ×2 (09:42→21:05)
[2023-03-12] MEDS: Floranex 1 GM Packet PO SCH (09:42)
[2023-03-12] MEDS: Amiodarone 200 MG TAB PO SCH (09:42)
[2023-03-12] MEDS: Famotidine 20 MG TAB PO SCH ×2 (09:42→21:04)
[2023-03-12] MEDS: Ipratropium/Albuterol Sulfate 4 GM AER IH SCH ×2 (09:43→21:16)
[2023-03-12] MEDS: metFORMIN 500 MG TAB PO SCH (16:21)
[2023-03-12] MEDS: Atorvastatin Calcium 40 MG TAB PO SCH (21:04)
[2023-03-12] MEDS: Melatonin 3 MG TAB PO SCH (21:05)
[2023-03-12] MEDS: Gabapentin 300 MG CAP PO SCH (21:09)
[2023-03-12] MEDS: VERAPAMIL 360 MG PO SCH (21:19)
[2023-03-13] MEDS: Levothyroxine Sodium 50 MCG TAB PO SCH (05:42)
[2023-03-13] MEDS: Docusate Sodium 100 MG/10 ML UDCUP PO SCH (09:50)
[2023-03-13] MEDS: Mometasone/Formoterol 200/5 60 PUFF INH SCH ×2 (09:53→20:10)
[2023-03-13] MEDS: Ipratropium/Albuterol Sulfate 4 GM AER IH SCH ×2 (09:54→20:09)
[2023-03-13] MEDS: DULoxetine 30 MG CAP PO SCH (09:54)
[2023-03-13] MEDS: Amiodarone 200 MG TAB PO SCH (09:55)
[2023-03-13] MEDS: Famotidine 20 MG TAB PO SCH ×2 (09:55→20:07)
[2023-03-13] MEDS: Apixaban 5 MG TAB PO SCH ×2 (09:55→20:08)
[2023-03-13] MEDS: Bupropion 150 MG XL TAB PO SCH (09:55)
[2023-03-13] MEDS: Furosemide 20 MG TAB PO SCH (09:56)
[2023-03-13] MEDS: Senokot S 8.6-50 MG TAB PO SCH ×2 (09:56→20:06)
[2023-03-13] MEDS: Saccharomyces boulardii 250 MG CAP PO SCH (09:56)
[2023-03-13] MEDS: Metoprolol Tartrate 25 MG TAB PO SCH ×2 (09:57→20:07)
[2023-03-13] MEDS: Floranex 1 GM Packet PO SCH (09:57)
[2023-03-13] MEDS: Glimepiride 2 MG TAB PO SCH (09:57)
[2023-03-13] MEDS: Lisinopril 20 MG TAB PO SCH ×2 (09:57→20:07)
[2023-03-13] MEDS: Cepastat Lozenges 1 LOZ PO PRN ×3 (09:58→20:07)
[2023-03-13] MEDS: Gabapentin 100 MG CAP PO SCH ×3 (09:58→20:08)
[2023-03-13] MEDS: metFORMIN 500 MG TAB PO SCH (17:56)
[2023-03-13] MEDS ORDERED: Fluticasone Propionate Nasal Spray 16 gm Bottle NASAL SCH (19:45)
[2023-03-13] MEDS: Melatonin 3 MG TAB PO SCH (20:06)
[2023-03-13] MEDS: Atorvastatin Calcium 40 MG TAB PO SCH (20:07)
[2023-03-13] MEDS: Gabapentin 300 MG CAP PO SCH (20:08)
[2023-03-13] MEDS: VERAPAMIL 360 MG PO SCH (20:11)
[2023-03-14] MEDS: Levothyroxine Sodium 50 MCG TAB PO SCH (05:35)
[2023-03-14] MEDS ORDERED: Azithromycin 250 MG TAB PO SCH (09:00)
[2023-03-14] MEDS: Senokot S 8.6-50 MG TAB PO SCH ×2 (10:00→20:11)
[2023-03-14] MEDS: Metoprolol Tartrate 25 MG TAB PO SCH ×2 (10:00→20:13)
[2023-03-14] MEDS: predniSONE 20 MG TAB PO SCH (10:00)
[2023-03-14] MEDS: DULoxetine 30 MG CAP PO SCH (10:00)
[2023-03-14] MEDS: Glimepiride 2 MG TAB PO SCH (10:00)
[2023-03-14] MEDS: Apixaban 5 MG TAB PO SCH ×2 (10:01→20:13)
[2023-03-14] MEDS: Floranex 1 GM Packet PO SCH (10:02)
[2023-03-14] MEDS: Furosemide 20 MG TAB PO SCH (10:03)
[2023-03-14] MEDS: Amiodarone 200 MG TAB PO SCH (10:03)
[2023-03-14] MEDS: Bupropion 150 MG XL TAB PO SCH (10:03)
[2023-03-14] MEDS: Saccharomyces boulardii 250 MG CAP PO SCH (10:03)
[2023-03-14] MEDS: Lisinopril 20 MG TAB PO SCH ×2 (10:03→20:11)
[2023-03-14] MEDS: Gabapentin 100 MG CAP PO SCH ×3 (10:04→20:13)
[2023-03-14] MEDS: Famotidine 20 MG TAB PO SCH ×2 (10:05→20:13)
[2023-03-14] MEDS: Docusate Sodium 100 MG/10 ML UDCUP PO SCH (10:05)
[2023-03-14] MEDS: Mometasone/Formoterol 200/5 60 PUFF INH SCH ×2 (10:05→20:13)
[2023-03-14] MEDS: Fluticasone Propionate Nasal Spray 16 gm Bottle NASAL SCH (10:07)
[2023-03-14] MEDS: Ipratropium/Albuterol Sulfate 4 GM AER IH SCH ×2 (10:07→20:13)
[2023-03-14] MEDS: metFORMIN 500 MG TAB PO SCH (18:16)
[2023-03-14] MEDS: Calcium Carbonate 500 MG ChewTAB PO PRN (18:22)
[2023-03-14] MEDS: Melatonin 3 MG TAB PO SCH (20:11)
[2023-03-14] MEDS: Atorvastatin Calcium 40 MG TAB PO SCH (20:12)
[2023-03-14] MEDS: Gabapentin 300 MG CAP PO SCH (20:12)
[2023-03-14] MEDS: VERAPAMIL 360 MG PO SCH (20:22)
[2023-03-14] MEDS: Cepastat Lozenges 1 LOZ PO PRN (20:31)
[2023-03-15] MEDS: Levothyroxine Sodium 50 MCG TAB PO SCH (05:35)
[2023-03-15 05:36] LABS: Hemoglobin 10.7 g/dL (12.0-16.0); Platelet Count 291 10x3/uL (130-400)
[2023-03-15] MEDS: Azithromycin 250 MG TAB PO SCH (08:48)
[2023-03-15] MEDS: Glimepiride 2 MG TAB PO SCH (08:48)
[2023-03-15] MEDS: Gabapentin 100 MG CAP PO SCH ×3 (08:49→21:58)
[2023-03-15] MEDS: Furosemide 20 MG TAB PO SCH (08:49)
[2023-03-15] MEDS: Amiodarone 200 MG TAB PO SCH (08:50)
[2023-03-15] MEDS: Metoprolol Tartrate 25 MG TAB PO SCH ×2 (08:50→22:00)
[2023-03-15] MEDS: predniSONE 20 MG TAB PO SCH (08:51)
[2023-03-15] MEDS: Famotidine 20 MG TAB PO SCH ×2 (08:51→22:00)
[2023-03-15] MEDS: Lisinopril 20 MG TAB PO SCH ×2 (08:51→21:59)
[2023-03-15] MEDS: Apixaban 5 MG TAB PO SCH ×2 (08:51→21:59)
[2023-03-15] MEDS: Saccharomyces boulardii 250 MG CAP PO SCH (08:52)
[2023-03-15] MEDS: Floranex 1 GM Packet PO SCH (08:52)
[2023-03-15] MEDS: Docusate Sodium 100 MG/10 ML UDCUP PO SCH (08:52)
[2023-03-15] MEDS: Bupropion 150 MG XL TAB PO SCH (08:52)
[2023-03-15] MEDS: Fluticasone Propionate Nasal Spray 16 gm Bottle NASAL SCH (09:10)
[2023-03-15] MEDS: DULoxetine 30 MG CAP PO SCH (09:10)
[2023-03-15] MEDS: Senokot S 8.6-50 MG TAB PO SCH ×2 (09:15→22:00)
[2023-03-15] MEDS: Ipratropium/Albuterol Sulfate 4 GM AER IH SCH ×2 (12:06→21:54)
[2023-03-15] MEDS: Mometasone/Formoterol 200/5 60 PUFF INH SCH ×2 (12:07→21:53)
[2023-03-15] MEDS ORDERED: Gabapentin 100 MG CAP PO SCH (17:00)
[2023-03-15] MEDS: HumaLOG 300 UNITS/3 ML VIAL SC PRN (17:05)
[2023-03-15] MEDS: metFORMIN 500 MG TAB PO SCH (17:43)
[2023-03-15] MEDS: VERAPAMIL 360 MG PO SCH (21:53)
[2023-03-15] MEDS: Atorvastatin Calcium 40 MG TAB PO SCH (21:58)
[2023-03-15] MEDS: Melatonin 3 MG TAB PO SCH (21:59)
[2023-03-15] MEDS: Gabapentin 300 MG CAP PO SCH (21:59)
[2023-03-16] MEDS: Levothyroxine Sodium 50 MCG TAB PO SCH (05:11)
[2023-03-16] MEDS: Fluticasone Propionate Nasal Spray 16 gm Bottle NASAL SCH (08:07)
[2023-03-16] MEDS: Floranex 1 GM Packet PO SCH (08:08)
[2023-03-16] MEDS: Azithromycin 250 MG TAB PO SCH (08:08)
[2023-03-16] MEDS: Bupropion 150 MG XL TAB PO SCH (08:09)
[2023-03-16] MEDS: Gabapentin 100 MG CAP PO SCH ×3 (08:10→21:24)
[2023-03-16] MEDS: DULoxetine 30 MG CAP PO SCH (08:12)
[2023-03-16] MEDS: Glimepiride 2 MG TAB PO SCH (08:12)
[2023-03-16] MEDS: Lisinopril 20 MG TAB PO SCH ×2 (08:12→21:20)
[2023-03-16] MEDS: Metoprolol Tartrate 25 MG TAB PO SCH ×2 (08:12→21:26)
[2023-03-16] MEDS: Furosemide 20 MG TAB PO SCH (08:13)
[2023-03-16] MEDS: Senokot S 8.6-50 MG TAB PO SCH ×2 (08:13→21:20)
[2023-03-16] MEDS: Apixaban 5 MG TAB PO SCH ×2 (08:14→21:20)
[2023-03-16] MEDS: predniSONE 20 MG TAB PO SCH (08:14)
[2023-03-16] MEDS: Saccharomyces boulardii 250 MG CAP PO SCH (08:15)
[2023-03-16] MEDS: Amiodarone 200 MG TAB PO SCH (08:15)
[2023-03-16] MEDS: Mometasone/Formoterol 200/5 60 PUFF INH SCH ×2 (08:18→21:18)
[2023-03-16] MEDS: Ipratropium/Albuterol Sulfate 4 GM AER IH SCH ×2 (08:20→21:18)
[2023-03-16] MEDS: Docusate Sodium 100 MG/10 ML UDCUP PO SCH (08:21)
[2023-03-16] MEDS: Famotidine 20 MG TAB PO SCH ×2 (08:22→21:20)
[2023-03-16] MEDS: HumaLOG 300 UNITS/3 ML VIAL SC PRN (12:24)
[2023-03-16] MEDS: metFORMIN 500 MG TAB PO SCH (16:47)
[2023-03-16] MEDS: Atorvastatin Calcium 40 MG TAB PO SCH (21:20)
[2023-03-16] MEDS: Melatonin 3 MG TAB PO SCH (21:20)
[2023-03-16] MEDS: Gabapentin 300 MG CAP PO SCH (21:24)
[2023-03-16] MEDS: VERAPAMIL 360 MG PO SCH (21:27)
[2023-03-17] MEDS: Levothyroxine Sodium 50 MCG TAB PO SCH (05:15)
[2023-03-17] MEDS: Fluticasone Propionate Nasal Spray 16 gm Bottle NASAL SCH (09:55)
[2023-03-17] MEDS: Senokot S 8.6-50 MG TAB PO SCH ×2 (10:00→23:10)
[2023-03-17] MEDS: Mometasone/Formoterol 200/5 60 PUFF INH SCH ×2 (10:02→23:15)
[2023-03-17] MEDS: Glimepiride 2 MG TAB PO SCH (10:07)
[2023-03-17] MEDS: Lisinopril 20 MG TAB PO SCH ×2 (10:07→23:11)
[2023-03-17] MEDS: DULoxetine 30 MG CAP PO SCH (10:07)
[2023-03-17] MEDS: Bupropion 150 MG XL TAB PO SCH (10:08)
[2023-03-17] MEDS: Floranex 1 GM Packet PO SCH (10:08)
[2023-03-17] MEDS: Gabapentin 100 MG CAP PO SCH ×3 (10:09→23:13)
[2023-03-17] MEDS: Famotidine 20 MG TAB PO SCH ×2 (10:09→23:11)
[2023-03-17] MEDS: Azithromycin 250 MG TAB PO SCH (10:10)
[2023-03-17] MEDS: Saccharomyces boulardii 250 MG CAP PO SCH (10:10)
[2023-03-17] MEDS: Amiodarone 200 MG TAB PO SCH (10:10)
[2023-03-17] MEDS: Metoprolol Tartrate 25 MG TAB PO SCH ×2 (10:10→23:12)
[2023-03-17] MEDS: predniSONE 20 MG TAB PO SCH (10:11)
[2023-03-17] MEDS: Furosemide 20 MG TAB PO SCH (10:11)
[2023-03-17] MEDS: Apixaban 5 MG TAB PO SCH ×2 (10:11→23:10)
[2023-03-17] MEDS: Docusate Sodium 100 MG/10 ML UDCUP PO SCH (10:11)
[2023-03-17] MEDS: Ipratropium/Albuterol Sulfate 4 GM AER IH SCH ×2 (10:12→23:16)
[2023-03-17] MEDS: HumaLOG 300 UNITS/3 ML VIAL SC PRN (12:20)
[2023-03-17] MEDS: metFORMIN 500 MG TAB PO SCH (17:50)
[2023-03-17] MEDS: Atorvastatin Calcium 40 MG TAB PO SCH (23:12)
[2023-03-17] MEDS: Gabapentin 300 MG CAP PO SCH (23:12)
[2023-03-17] MEDS: VERAPAMIL 360 MG PO SCH (23:14)
[2023-03-17] MEDS: Melatonin 3 MG TAB PO SCH (23:15)
[2023-03-18] MEDS: Levothyroxine Sodium 50 MCG TAB PO SCH (05:08)
[2023-03-18 08:00] VITALS: TEMP 97.6
[2023-03-18] MEDS: Ipratropium/Albuterol Sulfate 4 GM AER IH SCH (09:42)
[2023-03-18] MEDS: Fluticasone Propionate Nasal Spray 16 gm Bottle NASAL SCH (09:42)
[2023-03-18] MEDS: DULoxetine 30 MG CAP PO SCH (09:43)
[2023-03-18] MEDS: Mometasone/Formoterol 200/5 60 PUFF INH SCH (09:43)
[2023-03-18] MEDS: Gabapentin 100 MG CAP PO SCH ×2 (09:44→15:40)
[2023-03-18] MEDS: Glimepiride 2 MG TAB PO SCH (09:44)
[2023-03-18] MEDS: Saccharomyces boulardii 250 MG CAP PO SCH (09:44)
[2023-03-18] MEDS: Senokot S 8.6-50 MG TAB PO SCH (09:44)
[2023-03-18] MEDS: Azithromycin 250 MG TAB PO SCH (09:44)
[2023-03-18] MEDS: Metoprolol Tartrate 25 MG TAB PO SCH (09:44)
[2023-03-18] MEDS: Furosemide 20 MG TAB PO SCH (09:44)
[2023-03-18] MEDS: Bupropion 150 MG XL TAB PO SCH (09:45)
[2023-03-18] MEDS: Famotidine 20 MG TAB PO SCH (09:45)
[2023-03-18] MEDS: Floranex 1 GM Packet PO SCH (09:45)
[2023-03-18] MEDS: Apixaban 5 MG TAB PO SCH (09:45)
[2023-03-18] MEDS: Lisinopril 20 MG TAB PO SCH (09:45)
[2023-03-18 09:46] VITALS: BP 147/83
[2023-03-18] MEDS: predniSONE 20 MG TAB PO SCH (09:46)
[2023-03-18] MEDS: Amiodarone 200 MG TAB PO SCH (09:54)
[2023-03-18] MEDS: Docusate Sodium 100 MG/10 ML UDCUP PO SCH (10:28)
== END 2023-03-18 16:10 | DRG 560 ==
LOC: BURMED 19:20
PROVIDERS: ADMIT Family Medicine; ATTEND Family Medicine
DX: S82.842D Displaced bimalleolar fracture of left lower leg, subsequent encounter for closed fracture with routine healing (principal); I13.0 Hypertensive heart and chronic kidney disease with heart failure and stage 1 through stage 4 chronic kidney disease, or unspecified chronic kidney disease; Z68.41 Body mass index [BMI] 40.0-44.9, adult; W18.30XD Fall on same level, unspecified, subsequent encounter; R53.1 Weakness; I50.9 Heart failure, unspecified; J44.9 Chronic obstructive pulmonary disease, unspecified; I48.91 Unspecified atrial fibrillation; E11.22 Type 2 diabetes mellitus with diabetic chronic kidney disease; Z66 Do not resuscitate; F32.A Depression, unspecified; E03.9 Hypothyroidism, unspecified; Z60.2 Problems related to living alone; E66.01 Morbid (severe) obesity due to excess calories; N18.9 Chronic kidney disease, unspecified; Z96.653 Presence of artificial knee joint, bilateral; I25.2 Old myocardial infarction; Z90.710 Acquired absence of both cervix and uterus; Z90.49 Acquired absence of other specified parts of digestive tract; Z79.01 Long term (current) use of anticoagulants; Z79.899 Other long term (current) drug therapy; Z79.890 Hormone replacement therapy; Z79.84 Long term (current) use of oral hypoglycemic drugs; Z91.040 Latex allergy status; Z91.09 Other allergy status, other than to drugs and biological substances
CPT/HCPCS: 36415; 36416; 82947; 85014; 85018; 85049; 94640; 94664; J1815; J3535; J7512; J7620; Q0162

== ENCOUNTER 2023-12-01 10:40 | Emergency (ER) | payer BC, MEDICARE ==
[2023-12-01 11:15] LABS: #Basophils 0.1 thou/uL (0.0-0.2); #Eosinphils 0.1 thou/uL (0.0-0.7); #Lymphocytes 1.4 thou/uL (1.20-3.40); #Monocytes 0.6 thou/uL (0.11-0.59); #Neutrophils 5.4 thou/uL (1.40-6.50); %Basophils 0.9 % (0.0-1.0); %Eosinophils 1.9 % (0.0-10.0); %Lymphocytes 18.2 % (21.0-51.0); Hematocrit 35.8 % (36.0-47.0); Hemoglobin 11.2 g/dL (12.0-16.0); Mean Corpuscular HGB CONC 31.3 g/dL (32.0-36.0); Mean Corpuscular Hemoglobin 26.9 pg (27.0-31.0); Mean Corpuscular Volume 86.1 fl (78.0-98.0); Mean Platelet Volume 7.9 fL (7.4-10.4); Platelet Count 221 10x3/uL (130-400); RBC Distribution Width 14.2 % (11.5-14.5); Red Blood Cell (RBC) Count 4.16 mill/uL (4.20-5.40); White Blood Cell (WBC) Count 7.6 10x3/uL (4.8-10.8)
[2023-12-01 11:33] LABS: ALT (SGPT) 17 U/L (8-55); AST (SGOT) 17 U/L (5-34); Albumin 3.4 g/dL (3.4-4.8); Alkaline Phosphatase 124 U/L (40-110); Anion Gap 16 mmol/L (10-20); BUN (Urea Nitrogen) 26 mg/dL (9.8-20.1); Bilirubin, Total 0.4 mg/dL (0.2-1.2); Calc. Creatinine Clearance 0 mL/min (70-130); Calcium 9.1 mg/dL (7.8-10.44); Carbon Dioxide 23 mmol/L (23-31); Chloride 102 mmol/L (98-107); Estimated GFR 27; Globulin 3.2 g/dL (2.4-3.5); Glucose 270 mg/dL (83-110); Potassium 4.9 mmol/L (3.5-5.1); Protein, Total 6.6 g/dL (5.8-8.1); Sodium 136 mmol/L (136-145); Troponin I Less than 0.010 ng/mL (< 0.028)
[2023-12-01 11:51] LABS: SARS-CoV-2 NAA Rapid Test Not Detected (NotDetected)
[2023-12-01 13:43] LABS: Bilirubin Negative (Negative); Blood, Urine Trace (Negative); Glucose, Urine (Dipstick) Negative (Negative); Ketone, Urine Negative (Negative); Leukocyte Small (Negative); Nitrite Positive (Negative); Protein, Urine (Dipstick) Negative (Neg-Trace); Specific Gravity, Urine 1.015 (1.005-1.030); Urobilinogen 0.2 mg/dL (Less than 2); pH, Urine 5.5 (5.0-9.0)
[2023-12-01 13:51] LABS: Bacteria/HPF 2+ HPF (None Seen); CAUTI Indications for Culture Dysuria,urgency,freq; Clarity Cloudy (Clear); Squamous Epithelial 0-3 HPF (0-3); WBC/HPF Greater Than 50 HPF (0-3)
[2023-12-01 13:53] LABS: Urine Culture Reflex Yes Yes
[2023-12-01] MEDS ORDERED: cefTRIAXone (ROCEPHIN) 1 GM VIAL ONE (13:56)
== END 2023-12-01 14:05 | disposition home or self-care (01) ==
LOC: BURERS 10:40
DX: N39.0 Urinary tract infection, site not specified (principal); R53.1 Weakness; E11.9 Type 2 diabetes mellitus without complications; E03.9 Hypothyroidism, unspecified; I10 Essential (primary) hypertension; J44.9 Chronic obstructive pulmonary disease, unspecified; E78.00 Pure hypercholesterolemia, unspecified; Z79.899 Other long term (current) drug therapy
CPT/HCPCS: 71045; 80053; 81001; 83605; 83880; 84484; 85025; 87077; 87086; 93005; 96361; 96374; J0696

== ENCOUNTER 2024-05-01 10:30 | Observation (INO) | payer MEDICARE ==
[2024-05-01 11:29] LABS: #Eosinphils 0.1 thou/uL (0.0-0.7); #Lymphocytes 2.4 thou/uL (1.20-3.40); #Monocytes 0.8 thou/uL (0.11-0.59); #Neutrophils 7.7 thou/uL (1.40-6.50); %Basophils 0.3 % (0.0-1.0); %Eosinophils 0.7 % (0.0-10.0); %Lymphocytes 21.6 % (21.0-51.0); %Monocytes 7.2 % (0.0-10.0); %Neutrophils 70.1 % (42.0-75.0); Hematocrit 47.6 % (36.0-47.0); Hemoglobin 14.7 g/dL (12.0-16.0); Mean Corpuscular HGB CONC 30.9 g/dL (32.0-36.0); Mean Corpuscular Hemoglobin 28.1 pg (27.0-31.0); Mean Platelet Volume 7.6 fL (7.4-10.4); Platelet Count 268 10x3/uL (130-400); RBC Distribution Width 13.9 % (11.5-14.5); Red Blood Cell (RBC) Count 5.23 mill/uL (4.20-5.40)
[2024-05-01 11:51] LABS: ALT (SGPT) 11 U/L (8-55); AST (SGOT) 11 U/L (5-34); Albumin 3.9 g/dL (3.4-4.8); Alkaline Phosphatase 141 U/L (40-110); Anion Gap 17 mmol/L (10-20); BUN (Urea Nitrogen) 33 mg/dL (9.8-20.1); Bilirubin, Total 0.4 mg/dL (0.2-1.2); Calc. Creatinine Clearance 0 mL/min (70-130); Calcium 10.1 mg/dL (7.8-10.44); Carbon Dioxide 21 mmol/L (23-31); Chloride 103 mmol/L (98-107); Estimated GFR 18; Globulin 3.3 g/dL (2.4-3.5); Glucose 186 mg/dL (83-110); Lipase 8 U/L (8-78); Potassium 4.2 mmol/L (3.5-5.1); Protein, Total 7.2 g/dL (5.8-8.1); Sodium 137 mmol/L (136-145)
[2024-05-01 11:52] LABS: Troponin I Less than 0.010 ng/mL (< 0.028)
[2024-05-01 14:17] LABS: Lactic Acid 1.3 mmol/L (0.5-2.2)
[2024-05-01 14:43] LABS: Bilirubin Negative (Negative); Blood, Urine Small (Negative); Clarity Cloudy (Clear); Glucose, Urine (Dipstick) 500 mg/dL (Negative); Ketone, Urine Negative (Negative); Leukocyte Large (Negative); Nitrite Negative (Negative); Protein, Urine (Dipstick) 30 mg/dL (Neg-Trace); Urobilinogen 0.2 mg/dL (Less than 2)
[2024-05-01 14:48] LABS: CAUTI Indications for Culture Dysuria,urgency,freq; RBC/HPF None Seen HPF (0-3); WBC/HPF Greater Than 50 HPF (0-3)
[2024-05-01 14:49] LABS: Bacteria/HPF 3+ HPF (None Seen); Renal Epithelial 0-3 HPF (None Seen); Squamous Epithelial 0-3 HPF (0-3)
[2024-05-01 14:50] LABS: Urine Culture Reflex Yes Yes
[2024-05-01 17:34] VITALS: BMI 42.3
[2024-05-01] MEDS: Sodium Chloride 0.9% 1,000 ML IV SCH (21:29)
[2024-05-01] MEDS: Atorvastatin Calcium 40 MG TAB PO SCH (21:30)
[2024-05-01] MEDS: Metoprolol Tartrate 25 MG TAB PO SCH (21:30)
[2024-05-01] MEDS: Melatonin 3 MG TAB PO SCH (21:30)
[2024-05-01] MEDS: Oxybutynin 5 MG TAB PO SCH (21:30)
[2024-05-01] MEDS: Mometasone/Formoterol 200/5 60 PUFF INH SCH (21:31)
[2024-05-01] MEDS: Apixaban 2.5 MG TAB PO SCH (21:31)
[2024-05-01] MEDS: Gabapentin 300 MG CAP PO SCH (21:31)
[2024-05-02] MEDS: cefTRIAXone (ROCEPHIN) 1 GM VIAL ONE (00:42)
[2024-05-02] MEDS: Sodium Chloride 0.9% 100 ML ONE (00:43)
[2024-05-02] MEDS: VERAPAMIL HCL 360 MG PO SCH (00:43)
[2024-05-02 05:05] LABS: #Basophils 0.1 thou/uL (0.0-0.2); #Eosinphils 0.1 thou/uL (0.0-0.7); #Lymphocytes 2.1 thou/uL (1.20-3.40); #Monocytes 1.1 thou/uL (0.11-0.59); #Neutrophils 4.9 thou/uL (1.40-6.50); %Basophils 0.7 % (0.0-1.0); %Eosinophils 1.3 % (0.0-10.0); %Lymphocytes 25.3 % (21.0-51.0); %Monocytes 13.1 % (0.0-10.0); %Neutrophils 59.6 % (42.0-75.0); Hematocrit 40.5 % (36.0-47.0); Hemoglobin 13.4 g/dL (12.0-16.0); Mean Corpuscular Hemoglobin 29.5 pg (27.0-31.0); Mean Corpuscular Volume 89.6 fl (78.0-98.0); Mean Platelet Volume 8.1 fL (7.4-10.4); Platelet Count 171 10x3/uL (130-400); RBC Distribution Width 14.2 % (11.5-14.5); Red Blood Cell (RBC) Count 4.52 mill/uL (4.20-5.40); White Blood Cell (WBC) Count 8.3 10x3/uL (4.8-10.8)
[2024-05-02 05:24] LABS: ALT (SGPT) 7 U/L (8-55); AST (SGOT) 10 U/L (5-34); Albumin 3.2 g/dL (3.4-4.8); Alkaline Phosphatase 110 U/L (40-110); Anion Gap 14 mmol/L (10-20); BUN (Urea Nitrogen) 33 mg/dL (9.8-20.1); Bilirubin, Total 0.3 mg/dL (0.2-1.2); Calc. Creatinine Clearance 40 mL/min (70-130); Calcium 9.3 mg/dL (7.8-10.44); Carbon Dioxide 19 mmol/L (23-31); Chloride 108 mmol/L (98-107); Estimated GFR 23; Globulin 2.7 g/dL (2.4-3.5); Glucose 148 mg/dL (83-110); Potassium 4.1 mmol/L (3.5-5.1); Protein, Total 5.9 g/dL (5.8-8.1); Sodium 137 mmol/L (136-145)
[2024-05-02] MEDS: Levothyroxine Sodium 50 MCG TAB PO SCH (05:47)
[2024-05-02] MEDS: Bupropion 150 MG SR.TAB PO SCH (09:06)
[2024-05-02] MEDS: Floranex 1 GM Packet PO SCH (09:06)
[2024-05-02] MEDS: Amiodarone 200 MG TAB PO SCH (09:07)
[2024-05-02] MEDS: Alogliptin 6.25 MG TAB PO SCH (09:07)
[2024-05-02] MEDS: Apixaban 5 MG TAB PO SCH (09:08)
[2024-05-02] MEDS: Furosemide 20 MG TAB PO SCH (09:08)
[2024-05-02] MEDS: Losartan 25 MG TAB PO SCH (09:09)
[2024-05-02] MEDS: DOCUSATE SODIUM 250 MG PO SCH (09:14)
[2024-05-02] MEDS: Linaclotide [Linzess] 72 MCG Capsule PO SCH (09:15)
[2024-05-02 10:07] VITALS: BP 122/79; TEMP 98.5
[2024-05-02] MEDS ORDERED: cefTRIAXone\\ROCEPHIN 1 GM in Sodium Chloride 0.9% 100 ML IVPB SCH (14:00)
[2024-05-02] MEDS ORDERED: Mometasone Furoate 60 PUFF 220MCG INH SCH (18:30)
== END 2024-05-02 12:45 | disposition home or self-care (01) ==
LOC: BURERS 10:30 → BURMED 15:40
PROVIDERS: ADMIT Family Medicine; ATTEND Family Medicine
DX: E86.0 Dehydration (principal); R53.1 Weakness; E78.5 Hyperlipidemia, unspecified; I13.0 Hypertensive heart and chronic kidney disease with heart failure and stage 1 through stage 4 chronic kidney disease, or unspecified chronic kidney disease; N18.4 Chronic kidney disease, stage 4 (severe); E11.22 Type 2 diabetes mellitus with diabetic chronic kidney disease; N39.0 Urinary tract infection, site not specified; N17.9 Acute kidney failure, unspecified; E03.9 Hypothyroidism, unspecified; I48.91 Unspecified atrial fibrillation; I50.9 Heart failure, unspecified; J44.9 Chronic obstructive pulmonary disease, unspecified; Z90.49 Acquired absence of other specified parts of digestive tract; Z90.89 Acquired absence of other organs; Z90.710 Acquired absence of both cervix and uterus; Z91.048 Other nonmedicinal substance allergy status; Z91.040 Latex allergy status; Z79.899 Other long term (current) drug therapy; Z79.890 Hormone replacement therapy; Z79.01 Long term (current) use of anticoagulants
CPT/HCPCS: 71045; 80053 ×2; 81001; 82962; 83605; 83690; 83880; 84484; 85025 ×2; 87077; 87086; 87186; 93005; 94640; 96361; 96374; 99285; G0378 ×2; J0696; J3490; J7050; 36415; 36416

== ENCOUNTER 2025-09-09 15:27 | Emergency (ER) | payer MEDICARE ==
[2025-09-09 16:11] LABS: #Basophils 0.1 thou/uL (0.0-0.2); #Eosinophils 0.1 thou/uL (0.0-0.7); #Lymphocytes 2.3 thou/uL (1.20-3.40); #Monocytes 0.6 thou/uL (0.11-0.59); #Neutrophils 6.4 thou/uL (1.40-6.50); %Basophils 1.0 % (0.0-1.0); %Eosinophils 1.5 % (0.0-10.0); %Lymphocytes 23.6 % (21.0-51.0); %Monocytes 6.3 % (0.0-10.0); %Neutrophils 67.5 % (42.0-75.0); Hematocrit 35.4 % (36.0-47.0); Hemoglobin 12.5 g/dL (12.0-16.0); Mean Corpuscular Hemoglobin 28.4 pg (27.0-31.0); Mean Corpuscular Volume 80.4 fl (78.0-98.0); Platelet Count 203 10x3/uL (130-400); Red Blood Cell (RBC) Count 4.40 mill/uL (4.20-5.40); White Blood Cell (WBC) Count 9.5 10x3/uL (4.8-10.8)
[2025-09-09 16:22] LABS: INR-International Normal Ratio 1.3; Prothrombin Time 16.5 sec (12.0-14.7)
[2025-09-09 16:23] LABS: PTT 34.8 sec (22.9-36.1)
== END 2025-09-09 16:45 | disposition home or self-care (01) ==
LOC: BURERS 15:27
DX: S00.83XA Contusion of other part of head, initial encounter (principal); I11.0 Hypertensive heart disease with heart failure; I50.9 Heart failure, unspecified; E11.9 Type 2 diabetes mellitus without complications; J44.9 Chronic obstructive pulmonary disease, unspecified; I48.91 Unspecified atrial fibrillation; E78.5 Hyperlipidemia, unspecified; E03.9 Hypothyroidism, unspecified; Z79.01 Long term (current) use of anticoagulants; Z79.84 Long term (current) use of oral hypoglycemic drugs; Z79.890 Hormone replacement therapy; Z79.51 Long term (current) use of inhaled steroids; Z79.899 Other long term (current) drug therapy; W01.198A Fall on same level from slipping, tripping and stumbling with subsequent striking against other object, initial encounter
CPT/HCPCS: 36415; 70450; 85025; 85610; 85730